=== PATIENT | male | born 1950 | race Caucasian/White ===

== ENCOUNTER 2016-11-03 20:19 | Emergency (ER) | payer MEDICARE, OTHER ==
[2016-11-03 20:55] LABS: BASO % 0.4 % (0.2-1.2); EOS # 0.1 10_X3_uL (0.0-0.5); EOS % 0.6 % (0.8-7.0); GRAN # 5.6 10_X3_uL (1.8-5.4); GRAN % 68.4 % (34.0-67.9); HEMATOCRIT 52.7 % (40-51); HEMOGLOBIN 16.4 g/dL (13.7-17.5); LYMPH # 1.9 10_X3_uL (1.3-3.6); LYMPH % 23.3 % (21.8-53.1); MEAN CORPUSCULAR HEMOGLOBIN 29.4 pg (27.0-33.0); MEAN CORPUSCULAR HGB CONC 31.1 g/dL (32.0-36.0); MEAN CORPUSCULAR VOLUME 94.6 fL (79-92); MEAN PLATELET VOLUME 9.3 fl (7.5-11.5); MONO # 0.6 10_X3_uL (0.3-0.8); MONO % 7.3 % (5.3-12.2); PLATELET COUNT 239 x10_3/uL (163-337); RED BLOOD COUNT 5.57 x10_6/uL (4.6-6.1); RED CELL DISTRIBUTION WIDTH 14.9 % (11.6-14.4); WHITE BLOOD COUNT 8.2 x10_3/uL (4.2-9.1)
[2016-11-03 21:03] LABS: ARTERIAL BLD GAS O2 SATURATION 82.4 % (94-98); ARTERIAL BLOOD GAS BASE EXCESS 5.9 mmol/L (-2.0-3.0); ARTERIAL BLOOD GAS HCO3 39.2 mmol/L (22-26)
[2016-11-03 21:05] LABS: ARTERIAL BLOOD GAS PCO2 104.6 mmHg (35-48)
[2016-11-03 21:09] LABS: ALBUMIN 4.1 gm/dL (3.4-5.0); ALKALINE PHOSPHATASE 64 U/L (50-136); ALT/SGPT 16 U/L (7.53-40.17); AST/SGOT 17 U/L (6.66-35.34); BILIRUBIN,TOTAL 0.24 mg/dL (0.0-1.0); BLOOD UREA NITROGEN 13 mg/dL (7-18); CALCIUM 9.3 mg/dL (8.7-10.7); CARBON DIOXIDE 35 mmol/L (21-32); CREATINE KINASE 62 U/L (35-232); CREATININE 0.8 mg/dL (0.6-1.3); GLUCOSE,RANDOM 123 mg/dL (70-99); POTASSIUM 4.8 mmol/L (3.5-5.1); SODIUM 137 mmol/L (136-145); TOTAL PROTEIN 6.8 gm/dL (6.4-8.2)
[2016-11-03 21:32] LABS: URINE BILIRUBIN NEGATIVE (NEGATIVE); URINE BLOOD NEGATIVE (NEGATIVE); URINE GLUCOSE (UA) NORMAL (NORMAL); URINE KETONE NEGATIVE (NEGATIVE); URINE LEUKOCYTE ESTERASE NEGATIVE (NEGATIVE); URINE NITRATE NEGATIVE (NEGATIVE); URINE PROTEIN NEGATIVE (NEGATIVE); UROBILINOGEN NORMAL mg/dL (<1.0)
[2016-11-03 22:19] LABS: ARTERIAL BLD GAS O2 SATURATION 95.3 % (94-98); ARTERIAL BLOOD GAS BASE EXCESS 7.3 mmol/L (-2.0-3.0); ARTERIAL BLOOD GAS pH 7.21 (7.35-7.45)
[2016-11-03 22:21] LABS: ARTERIAL BLOOD GAS PCO2 107.1 mmHg (35-48)
[2016-11-03 23:25] LABS: ARTERIAL BLOOD GAS pH 7.23 (7.35-7.45)
[2016-11-03 23:26] LABS: ARTERIAL BLD GAS O2 SATURATION 90.5 % (94-98); ARTERIAL BLOOD GAS BASE EXCESS 8.7 mmol/L (-2.0-3.0); ARTERIAL BLOOD GAS HCO3 42.4 mmol/L (22-26)
[2016-11-03 23:27] LABS: ARTERIAL BLOOD GAS PCO2 106.5 mmHg (35-48)
== END 2016-11-03 23:35 | disposition short-term general hospital (02) ==
LOC: ER 20:19
PROVIDERS: Internal Medicine
DX: J96.90 Respiratory failure, unspecified, unspecified whether with hypoxia or hypercapnia (principal); J44.9 Chronic obstructive pulmonary disease, unspecified; F17.210 Nicotine dependence, cigarettes, uncomplicated
CPT/HCPCS: 36415; 36600; 71010; 80053; 80307; 81003; 82550; 82553; 82803; 83605; 83880; 85025; 86738; 87040; 87400; 87449; 93005; 94644; 94660; 94664; 96365; 96375; 99070; 99285; 99285-25; J2930

== ENCOUNTER 2016-12-21 15:31 | Emergency (ER) | payer MEDICARE, OTHER | END 2016-12-21 18:13 | disposition home or self-care (01) | LOC: ER 15:31 | DX: J44.9 Chronic obstructive pulmonary disease, unspecified (principal); I10 Essential (primary) hypertension; F17.210 Nicotine dependence, cigarettes, uncomplicated; Z99.81 Dependence on supplemental oxygen; Z79.899 Other long term (current) drug therapy | CPT/HCPCS: 71020; 93005; 94664; 96372; 99284-25 ==

== ENCOUNTER 2017-01-20 00:18 | Emergency (ER) | payer MEDICARE, OTHER ==
[2017-01-20 00:58] LABS: ARTERIAL BLD GAS O2 SATURATION 91.5 % (94-98); ARTERIAL BLOOD GAS BASE EXCESS 5.1 mmol/L (-2.0-3.0); ARTERIAL BLOOD GAS pH 7.26 (7.35-7.45)
[2017-01-20 00:58] LABS: BASO % 0.4 % (0.2-1.2); EOS # 0.4 10_X3_uL (0.0-0.5); EOS % 5.2 % (0.8-7.0); GRAN # 2.8 10_X3_uL (1.8-5.4); GRAN % 39.6 % (34.0-67.9); HEMATOCRIT 49.4 % (40-51); LYMPH % 42.7 % (21.8-53.1); MEAN CORPUSCULAR HEMOGLOBIN 28.9 pg (27.0-33.0); MEAN CORPUSCULAR HGB CONC 30.4 g/dL (32.0-36.0); MEAN CORPUSCULAR VOLUME 95.2 fL (79-92); MEAN PLATELET VOLUME 9.3 fl (7.5-11.5); MONO # 0.9 10_X3_uL (0.3-0.8); MONO % 12.1 % (5.3-12.2); PLATELET COUNT 259 x10_3/uL (163-337); RED BLOOD COUNT 5.19 x10_6/uL (4.6-6.1); RED CELL DISTRIBUTION WIDTH 14.4 % (11.6-14.4); WHITE BLOOD COUNT 7.1 x10_3/uL (4.2-9.1)
[2017-01-20 01:00] LABS: ARTERIAL BLOOD GAS PCO2 80.9 mmHg (35-48)
[2017-01-20 01:30] LABS: ALKALINE PHOSPHATASE 65 U/L (50-136); ALT/SGPT 21 U/L (7.53-40.17); AST/SGOT 22 U/L (6.66-35.34); BILIRUBIN,TOTAL 0.29 mg/dL (0.0-1.0); BLOOD UREA NITROGEN 14 mg/dL (7-18); CALCIUM 8.8 mg/dL (8.7-10.7); CARBON DIOXIDE 30 mmol/L (21-32); CREATINE KINASE 96 U/L (35-232); GLUCOSE,RANDOM 105 mg/dL (70-99); POTASSIUM 4.4 mmol/L (3.5-5.1); SODIUM 142 mmol/L (136-145); TOTAL PROTEIN 6.5 gm/dL (6.4-8.2)
[2017-01-20 02:58] LABS: ARTERIAL BLD GAS O2 SATURATION 95.2 % (94-98); ARTERIAL BLOOD GAS BASE EXCESS 5.1 mmol/L (-2.0-3.0); ARTERIAL BLOOD GAS HCO3 34.8 mmol/L (22-26); ARTERIAL BLOOD GAS pH 7.27 (7.35-7.45)
[2017-01-20 03:00] LABS: ARTERIAL BLOOD GAS PCO2 78.6 mmHg (35-48)
[2017-01-20 05:08] LABS: ARTERIAL BLD GAS O2 SATURATION 92.4 % (94-98); ARTERIAL BLOOD GAS BASE EXCESS 4.8 mmol/L (-2.0-3.0); ARTERIAL BLOOD GAS HCO3 33.8 mmol/L (22-26); ARTERIAL BLOOD GAS pH 7.29 (7.35-7.45)
[2017-01-20 05:09] LABS: ARTERIAL BLOOD GAS PCO2 72.8 mmHg (35-48)
== END 2017-01-20 07:00 | disposition short-term general hospital (02) ==
LOC: ER 00:18
PROVIDERS: Internal Medicine
DX: J44.1 Chronic obstructive pulmonary disease with (acute) exacerbation (principal); Z91.19 Patient's noncompliance with other medical treatment and regimen; Z99.81 Dependence on supplemental oxygen
CPT/HCPCS: 36415; 36600; 71010; 80053; 82550; 82553; 82803; 83605; 83880; 85025; 87040; 93005; 94660; 94664; 96365; 96375; 99070; 99284; 99284-25; J2930